=== PATIENT | female | born 2000 | race Caucasian/White ===

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

== ENCOUNTER 2019-01-05 21:14 | Emergency (ER) | payer SELFPAY ==
[~2019-01-05] VITALS: Ht 147.2 cm; Wt 40.9 kg
[~2019-01-05 21:14] MED LIST changes: +TRAM50TA2 PO
[2019-01-05 21:33] LABS: CLARITY,URINE CLEAR; COLOR,URINE YELLOW; GLUCOSE, URINE (UA) NEGATIVE (NEGATIVE); KETONES,URINE NEGATIVE (NEGATIVE); PROTEIN,URINE NEGATIVE (NEGATIVE)
[2019-01-05 21:34] LABS: BACTERIA,URINE MODERATE /HPF; BILIRUBIN,URINE NEGATIVE (NEGATIVE); LEUKOCYTE ESTERASE ,URINE 2+ (NEGATIVE); NITRITE,URINE NEGATIVE (NEGATIVE)
[2019-01-05] MEDS ORDERED: TRIM/SULFAMETH 160/800 (SEPTRA DS) TAB PO STA (23:09)
[2019-01-05] MEDS ORDERED: PHENAZOPYRIDINE 100 MG (PYRIDIUM) TABLET PO STA (23:09)
[2019-01-05] MEDS ORDERED: PHEN-639 PO (23:16)
[2019-01-05] MEDS ORDERED: SULF1TAB35 PO (23:16)
--- NOTE | 2019-01-05 23:16 | ED GU-Female ---
General Chief Complaint: - Urinary Stated Complaint: BURNING WHILE URINATION Nursing Triage Note: pt with hx of uti's, states she started having burning this morning with urination Source: patient, family History of Present Illness Date Seen by Provider: Jan 05, 2019 Time Seen by Provider: 22:48 Initial Comments 18-year-old female presenting with complaints of burning and pain with frequency of urination. This is been going on for a couple of days. She also has had spotting for 5-6 days. She has irregular periods for currently anyway. She has no fever or chills. She denies any abdominal pain. She denies any vaginal discharge. She states that this feels similar to her last UTI that she had approximately 6 months ago. Allergies and Home Medications Allergies Coded Allergies: No Known Drug Allergies (Unverified , 06/11/18) Home Medications Amoxicillin/Clavulanate K 150 Ml Btl, 1 TSP PO BID Prescribed by: EDWIN SANTORO on 05/18/14912 Dexamethasone 1 Mg/1 Ml Teodora, 1.5 TSP PO DAILY PRN for PAIN Mix 4MG/2.5 water Prescribed by: EDWIN SANTORO on 05/18/14912 Diclofenac Potassium 50 Mg Tablet, 50 MG PO Q8H PRN for ABDOMINAL PAIN Prescribed by: DAVID KAPOOR on 07/19/18 172 Hydrocodone Bit/Acetaminophen 15 Ml Solution, 1-1.5 TSP PO Q4H Prescribed by: EDWIN SANTORO on 05/18/14912 Ofloxacin 5 Ml Drops, 3 DROPS EACH EAR BID Prescribed by: EDIWN SANTORO on 05/18/14912 Phenazopyridine HCl 100 Mg Tablet, 100 MG PO TID Prescribed by: LOBO JOHN on 01/05/192315 Sulfamethoxazole/Trimethoprim 1 Each Tablet, 1 EACH PO BID Prescribed by: LOBO JOHN on 01/05/192315 Tetracaine Sucker Ea, 1 EA MT UD PRN Tetracain Suckers These suckers are custom made and require a prescription. Moisten the sucker first and then suck on it gently as far back in the mouth as possible for 2-3 days. You can repeadt it in about an hour. This will take the edge off but not completely numb the throat. Prescribed by: EDWIN SANTORO on 05/18/14912 Tramadol HCl 50 Mg Tablet, 50 MG PO Q6H PRN for PAIN Prescribed by: OLIVIA AQUINO on 07/20/18 1606 Patient Home Medication List Home Medication List Reviewed: Yes Review of Systems Review of Systems Constitutional: No chills, No fever EENTM: no symptoms reported Respiratory: no symptoms reported Cardiovascular: no symptoms reported Gastrointestinal: no symptoms reported Genitourinary: see HPI, burning, dysuria, frequency Musculoskeletal: no symptoms reported Skin: no symptoms reported Past Vkigiga-Itahsx-Afjfcu Hx Past Med/Social Hx: Reviewed Nursing Past Med/Soc Hx Patient Social History Alcohol Use: Denies Use Recreational Drug Use: No Type Used: Cigarettes 2nd Hand Smoke Exposure: No Recent Foreign Travel: No Contact w/Someone Who Travel: No Recent Infectious Disease Expo: No Recent Hopitalizations: No Ebola Symptoms: Denies Symptoms Listed Physical Abuse: No Sexual Abuse: No Mistreated: No Fear: No Seasonal Allergies Seasonal Allergies: No Past Medical History Surgeries: No (BMT) Respiratory: No Cardiac: No Neurological: No Genitourinary: Yes (frequent UTI's) Gastrointestinal: No Musculoskeletal: No Endocrine: No HEENT: No Cancer: No Psychosocial: No Integumentary: No Blood Disorders: No Physical Exam Vital Signs Vital Signs - First Documented 01/05/19 01/05/19 22:03 23:21 Temp 35.6 Pulse 99 Resp 18 B/P (MAP) 114/63 Pulse Ox 98 O2 Delivery Room Air Capillary Refill : Height, Weight, BMI Height: 4'9.50" Weight: 94lbs. 0oz. [id number]; 18.00 BMI Method:Stated General Appearance: WD/WN, no apparent distress Cardiovascular: normal peripheral pulses, regular rate, rhythm Respiratory: chest non-tender, lungs clear, normal breath sounds Gastrointestinal: normal bowel sounds, non tender, soft, no organomegaly, no pulsatile mass Neurologic/Psychiatric: alert, normal mood/affect, oriented x 3 Progress/Results/Core Measures Suspected Sepsis SIRS Temperature: Pulse: Respiratory Rate: Blood Pressure / Mean: Results/Orders Lab Results Laboratory Tests Test 01/05/19 21:20 Range/Units Urine Color YELLOW Urine Clarity CLEAR Urine pH 7.0 5-9 Urine Specific [place] <1.005 1.016-1.022 Urine Protein NEGATIVE NEGATIVE Urine Glucose (UA) NEGATIVE NEGATIVE Urine Ketones NEGATIVE NEGATIVE Urine Nitrite NEGATIVE NEGATIVE Urine Bilirubin NEGATIVE NEGATIVE Urine Urobilinogen 0.2 NORMAL MG/DL Urine Leukocyte Esterase 2+ H NEGATIVE Urine RBC (Auto) 2+ H NEGATIVE Urine RBC 2-5 H /HPF Urine WBC 10-25 H /HPF Urine Squamous Epithelial Cells 2-5 /HPF Urine Crystals NONE /LPF Urine Calcium Oxalate Crystals /LPF Urine Cystine Crystals /LPF Urine Amorphous Sediment /LPF Urine Bacteria MODERATE H /HPF Urine Casts NONE /LPF Urine Mucus NEGATIVE /LPF Urine Culture Indicated YES Urine Test NEGATIVE NEGATIVE My Orders Orders - LOBO JOHN MD Ua Culture If Indicated (01/05/19 21:18) Hcg,Qualitative Urine (01/05/19 21:18) Urine Culture (01/05/19 21:20) Sulfamethoxazole/Trimet Ds Tab (Bactrim (01/05/19 23:09) Phenazopyridine Tablet (Pyridium Tablet) (01/05/19 23:09) Vital Signs/I&O 01/05/19 01/05/19 22:03 23:21 Temp 35.6 35.6 Pulse 99 99 Resp 18 18 B/P (MAP) 114/63 Pulse Ox 98 O2 Delivery Room Air Room Air Capillary Refill : Progress Note : Progress Note Urinalysis shows leukocyte esterase and bacteria present signs of UTI. Will treat with Bactrim and peridium. Encouraged to drink more water and follow-up through the clinic for continued concerns. Departure Impression Primary Impression: Cystitis without hematuria Disposition: 01 HOME, SELF-CARE Condition: Stable Departure-Patient Inst. Decision time for Depature: 23:13 Referrals: NO,LOCAL PHYSICIAN (PCP) Primary Care Physician [facility] Patient Instructions: Urinary Tract Infection, Adult (DC) Add. Discharge Instructions: Stay well-hydrated and get plenty of fluids and help flush out the infection. Take the full course of antibiotics to help treat the infection. Follow-up through the clinic for continued concerns or if not improving. All discharge instructions reviewed with patient and/or family. Voiced understanding. Scripts Phenazopyridine HCl (Pyridium) 100 Mg Tablet 100 MG PO TID for 2 Days, #6 TAB 0 Refills Prov: LOBO JOHN MD 01/05/19 Sulfamethoxazole/Trimethoprim (Bactrim Ds Tablet) 1 Each Tablet 1 EACH PO BID for UTI for 7 Days, #14 TAB 0 Refills Prov: LOBO JOHN MD 01/05/19 LOBO JOHN MD Jan 05, 2019 23:16
== END 2019-01-05 23:21 | disposition home or self-care (01) ==
LOC: EDUNIT# 21:14 → ER FS 21:17
DX: N30.90 Cystitis, unspecified without hematuria (principal)
CPT/HCPCS: 81000; 84703; 87077; 87088; 99282

== ENCOUNTER 2019-02-19 19:50 | Emergency (ER) | payer OTHER ==
[~2019-02-19] VITALS: Ht 147 cm; Wt 43.3 kg
[~2019-02-19 19:50] MED LIST changes: +PHEN-639 PO
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
--- NOTE | 2019-02-19 20:41 | Diagnostic Imaging Report ---
INDICATION: Right hip pain. EXAMINATION: Two views of the right hip were obtained. FINDINGS: No fracture, dislocation or other acute abnormalities. IMPRESSION: Negative right hip. Dictated by: Dictated on workstation # [id number]
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
== END 2019-02-19 20:55 | disposition home or self-care (01) ==
LOC: EDUNIT# 19:50 → ER FS 19:52
DX: S06.0X0A Concussion without loss of consciousness, initial encounter (principal); S70.01XA Contusion of right hip, initial encounter; V49.40XA Driver injured in collision with unspecified motor vehicles in traffic accident, initial encounter
CPT/HCPCS: 73502

== ENCOUNTER 2019-05-15 18:42 | Emergency (ER) | payer SELFPAY ==
[~2019-05-15] VITALS: Ht 147 cm; Wt 44.9 kg
[~2019-05-15 18:42] MED LIST changes: +OFLO5DRO33 EACH EAR; -OFLO5DRO7 EACH EAR; -TRAM50TA2 PO; +TRM50T PO
[2019-05-15 19:16] LABS: BACTERIA,URINE LARGE /HPF; BILIRUBIN,URINE NEGATIVE (NEGATIVE); CLARITY,URINE CLOUDY; COLOR,URINE LIGHT RED; GLUCOSE, URINE (UA) NEGATIVE (NEGATIVE); KETONES,URINE NEGATIVE (NEGATIVE); LEUKOCYTE ESTERASE ,URINE NEGATIVE (NEGATIVE); NITRITE,URINE NEGATIVE (NEGATIVE); PH,URINE 5.5 (5-9); PROTEIN,URINE 1+ (NEGATIVE); RBC,URINE 50-100 /HPF
[2019-05-15] MEDS ORDERED: ONDA4TAB11 PO (20:19)
[2019-05-15] MEDS ORDERED: NAPR-1071 PO (20:19)
--- NOTE | 2019-05-15 20:19 | ED GU-Female ---
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 Source: patient History of Present Illness Date Seen by Provider: May 15, 2019 Time Seen by Provider: 20:15 Initial Comments 18-year-old female presenting with complaints of lower pelvic pain. She has had pain in this area with ovarian cysts and menstrual cramps in the past. She just had an ultrasound on that showed she had continued ovarian cysts. She is following with Dr. Nunez about this. She is currently on her menstrual period now. She had some darker colored blood today with her menses. She is only using one or two pads throughout the day. She denies any fever or chills. She has no diarrhea or change in her bowels. She has no burning or pain with urination. She has no urinary frequency. Allergies and Home Medications Allergies Coded Allergies: No Known Drug Allergies (Unverified , 06/11/18) Home Medications Naproxen 500 Mg Tablet, 500 MG PO BID PRN for pelvic pain Prescribed by: LOBO JOHN on 05/15/192018 Ondansetron 4 Mg Tab.rapdis, 4 MG PO Q6H PRN for NAUSEA/VOMITING Prescribed by: LOBO JOHN on 05/15/192018 Phenazopyridine HCl 100 Mg Tablet, 100 MG PO TID Prescribed by: LOBO JOHN on 01/05/192315 Sulfamethoxazole/Trimethoprim 1 Each Tablet, 1 EACH PO BID Prescribed by: LOBO JOHN on 01/05/192315 Patient Home Medication List Home Medication List Reviewed: Yes Review of Systems Review of Systems Constitutional: No chills, No fever, No malaise EENTM: no symptoms reported Respiratory: no symptoms reported Cardiovascular: no symptoms reported Gastrointestinal: No constipation, No diarrhea; nausea; No vomiting Genitourinary: denies burning, denies dysuria; pain (pelvic pain worse with menstrual cycle and consistent with her previous ovarian cyst) Musculoskeletal: no symptoms reported Skin: no symptoms reported Psychiatric/Neurological: Anxiety Past Dsvozbb-Cpdhzt-Xsigty Hx Past Med/Social Hx: Reviewed Nursing Past Med/Soc Hx Patient Social History Alcohol Use: Denies Use Recreational Drug Use: No Smoking Status: Current Everyday Smoker Type Used: Cigarettes 2nd Hand Smoke Exposure: No Recent Foreign Travel: No Contact w/Someone Who Travel: No Recent Infectious Disease Expo: No Recent Hopitalizations: No Physical Abuse: No Sexual Abuse: No Mistreated: No Fear: No Seasonal Allergies Seasonal Allergies: No Past Medical History Surgeries: No (BMT) Respiratory: No Cardiac: No Neurological: No Genitourinary: Yes (frequent UTI's) Gastrointestinal: No Musculoskeletal: No Endocrine: No HEENT: No Cancer: No Psychosocial: No Integumentary: No Blood Disorders: No Physical Exam Vital Signs Vital Signs - First Documented 05/15/19 05/15/19 19:00 20:35 Temp 36.5 Pulse 87 Resp 16 B/P (MAP) 143/85 Pulse Ox 100 O2 Delivery Room Air Capillary Refill : Height, Weight, BMI Height: 4'9.50" Weight: 94lbs. 0oz. 42.960218eu; 20.00 BMI Method:Stated General Appearance: WD/WN, no apparent distress HEENT: normal ENT inspection, pharynx normal Neck: non-tender, full range of motion, supple, normal inspection Cardiovascular: normal peripheral pulses, regular rate, rhythm Respiratory: chest non-tender, lungs clear, normal breath sounds Gastrointestinal: normal bowel sounds, soft, no pulsatile mass; No abnormal bowel sounds, No distended, No guarding, No rebound; tenderness (suprapubic and right and left lower quadrants); No mass Extremities: normal range of motion, non-tender, normal capillary refill Neurologic/Psychiatric: alert, normal mood/affect, oriented x 3 Skin: normal color, warm/dry Progress/Results/Core Measures Suspected Sepsis SIRS Temperature: Pulse: Respiratory Rate: Blood Pressure / Mean: Results/Orders Lab Results Laboratory Tests Test 05/15/19 18:45 Range/Units Urine Color LIGHT RED Urine Clarity CLOUDY Urine pH 5.5 5-9 Urine Specific [place] 1.020 1.016-1.022 Urine Protein 1+ H NEGATIVE Urine Glucose (UA) NEGATIVE NEGATIVE Urine Ketones NEGATIVE NEGATIVE Urine Nitrite NEGATIVE NEGATIVE Urine Bilirubin NEGATIVE NEGATIVE Urine Urobilinogen 0.2 < = 1.0 MG/DL Urine Leukocyte Esterase NEGATIVE NEGATIVE Urine RBC (Auto) 3+ H NEGATIVE Urine RBC 50-100 H /HPF Urine WBC NONE /HPF Urine Squamous Epithelial Cells 10-25 H /HPF Urine Crystals NONE /LPF Urine Bacteria LARGE H /HPF Urine Casts NONE /LPF Urine Mucus NEGATIVE /LPF Urine Culture Indicated YES My Orders Orders - LOBO JOHN MD Ua Culture If Indicated (05/15/19 18:57) Urine Bedside (05/15/19 18:57) Urine Culture (05/15/19 18:45) Ketorolac Injection (Toradol Injection) (05/15/19 20:20) Ondansetron Oral Dissolve Tab (Zofran (05/15/19 20:20) Vital Signs/I&O 05/15/19 05/15/19 19:00 20:35 Temp 36.5 Pulse 87 91 Resp 16 17 B/P (MAP) 143/85 Pulse Ox 100 O2 Delivery Room Air Room Air Capillary Refill : Progress Note : Progress Note Reassured patient that the urine did not show any definite problems. She did have some blood as well as bacteria but she denies UTI symptoms. We will give Toradol and naproxen to help treat for ovarian cysts. Encouraged to check back with Dr. Nunez about her pain. Departure Impression Primary Impression: Pelvic pain in female Additional Impression: Ovarian cyst Qualified Codes: N83.209 - Unspecified ovarian cyst, unspecified side Disposition: HOME, SELF-CARE Condition: Stable Departure-Patient Inst. Decision time for Depature: 20:16 Referrals: NO,LOCAL PHYSICIAN (PCP) Primary Care Physician ROSITA NUNEZ DO Patient Instructions: Ovarian Cyst (DC), Menstrual Cramps (DC) Add. Discharge Instructions: Take the medicine for pain and inflammation. Follow up with Dr. Nunez about the ovarian cysts and painful period bleeding. All discharge instructions reviewed with patient and/or family. Voiced understanding. Scripts Ondansetron (Ondansetron Odt) 4 Mg Tab.rapdis 4 MG PO Q6H PRN for NAUSEA/VOMITING for 2 Days, #8 TAB 0 Refills Prov: LOBO JOHN MD 05/15/19 Naproxen (Naprosyn) 500 Mg Tablet 500 MG PO BID PRN for pelvic pain for 15 Days, #30 TAB 0 Refills Prov: LOBO JOHN MD 05/15/19 Work/School Note: Work Release Form Date Seen in the Emergency Department: May 15, 2019 Return to Work: May 16, 2019 Restrictions: No Restrictions LOBO JOHN MD May 15, 2019 20:19
[2019-05-15] MEDS ORDERED: KETOROLAC 60 MG/2 ML VIAL IM STA (20:20)
[2019-05-15] MEDS ORDERED: ONDANSETRON 4 MG (ZOFRAN) ORAL DISSOLVE TAB PO STA (20:20)
== END 2019-05-15 20:37 | disposition home or self-care (01) ==
LOC: EDUNIT# 18:42 → ER FS 18:44
DX: N83.209 Unspecified ovarian cyst, unspecified side (principal); F17.210 Nicotine dependence, cigarettes, uncomplicated
CPT/HCPCS: 81000; 84703; 87088

== ENCOUNTER 2019-05-19 18:28 | Emergency (ER) | payer SELFPAY ==
[~2019-05-19] VITALS: Ht 147 cm; Wt 45.0 kg
[~2019-05-19 18:28] MED LIST changes: +NAPR-1071 PO; +ONDA4TAB11 PO
[2019-05-19] MEDS ORDERED: LIDOCAINE 1% INJ 20 ML 20 ML VIAL INJ STA (18:41)
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
== END 2019-05-19 19:28 | disposition home or self-care (01) ==
LOC: EDUNIT# 18:28 → ER FS 18:30
DX: S01.111A Laceration without foreign body of right eyelid and periocular area, initial encounter (principal); S00.81XA Abrasion of other part of head, initial encounter; R40.2142 Coma scale, eyes open, spontaneous, at arrival to emergency department; R40.2252 Coma scale, best verbal response, oriented, at arrival to emergency department; R40.2362 Coma scale, best motor response, obeys commands, at arrival to emergency department; W03.XXXA Other fall on same level due to collision with another person, initial encounter; W22.8XXA Striking against or struck by other objects, initial encounter
CPT/HCPCS: 99282

== ENCOUNTER 2019-05-26 17:14 | Emergency (ER) | payer SELFPAY ==
[~2019-05-26] VITALS: Ht 147.3 cm; Wt 45.3 kg
[2019-05-26 17:30] VITALS: BP 107/70
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
== END 2019-05-26 17:30 | disposition home or self-care (01) ==
LOC: EDUNIT# 17:14 → ER FS 17:15
DX: S01.111D Laceration without foreign body of right eyelid and periocular area, subsequent encounter (principal); X58.XXXD Exposure to other specified factors, subsequent encounter

== ENCOUNTER 2019-09-06 19:00 | Emergency (ER) | payer SELFPAY ==
[~2019-09-06] VITALS: Ht 147 cm; Wt 42.5 kg
[2019-09-06 19:21] LABS: BILIRUBIN,URINE NEGATIVE (NEGATIVE); CLARITY,URINE CLEAR; COLOR,URINE PALE YELLOW; GLUCOSE, URINE (UA) NEGATIVE (NEGATIVE); KETONES,URINE NEGATIVE (NEGATIVE); LEUKOCYTE ESTERASE ,URINE NEGATIVE (NEGATIVE); NITRITE,URINE NEGATIVE (NEGATIVE); PROTEIN,URINE NEGATIVE (NEGATIVE)
[2019-09-06 19:22] LABS: BACTERIA,URINE TRACE /HPF; WBC,URINE 0-2 /HPF
[2019-09-06] MEDS ORDERED: KETOROLAC 30 MG/ML VIAL IVP STA (19:43)
[2019-09-06] MEDS ORDERED: NAPR-1071 PO (20:24)
--- NOTE | 2019-09-06 20:24 | ED GU-Female ---
General Chief Complaint: Abdominal/GI Problems Stated Complaint: LOWER ABD/BACK PAIN Nursing Triage Note: Patient states low abdominal pain on both sides that radiates into her back x 2 days. Patient states previous hx of multiple UTI's. She states her last period was 06/30/19. States she does not believe she is and that she has a hx. of abnormal menses but not hx. of gynecological concerns. Nursing Sepsis Screen: No Definite Risk Source: patient History of Present Illness Date Seen by Provider: Sep 06, 2019 Time Seen by Provider: 20:06 Initial Comments 19-year-old female presenting with pelvic pain. She states that this is been going on for at least 2 days. She has had similar pain in the past when she misses her period and she has not had a menstrual cycle since June. She had tried taking Midol for the pain but it was not helping today. She denies any pain with urination. She does have some vaginal discharge but denies any new sexual partners or concern for infection. She states she has had similar symptoms in the past due to ovarian cyst especially when she is late on her period Allergies and Home Medications Allergies Coded Allergies: No Known Drug Allergies (Unverified , 06/11/18) Home Medications Naproxen 500 Mg Tablet, 500 MG PO BID PRN for pelvic pain Prescribed by: LOBO JOHN on 09/06/192023 Ondansetron 4 Mg Tab.rapdis, 4 MG PO Q6H PRN for NAUSEA/VOMITING Prescribed by: LOBO JOHN on 05/15/192018 Phenazopyridine HCl 100 Mg Tablet, 100 MG PO TID Prescribed by: LOBO JOHN on 01/05/192315 Sulfamethoxazole/Trimethoprim 1 Each Tablet, 1 EACH PO BID Prescribed by: LOBO JOHN on 01/05/192315 Patient Home Medication List Home Medication List Reviewed: Yes Review of Systems Review of Systems Constitutional: No chills, No fever EENTM: no symptoms reported Respiratory: no symptoms reported Cardiovascular: no symptoms reported Gastrointestinal: no symptoms reported Genitourinary: see HPI Musculoskeletal: back pain (low back pain) Skin: no symptoms reported Psychiatric/Neurological: No Symptoms Reported Past Dajtgjq-Rsoqev-Qpngcx Hx Past Med/Social Hx: Reviewed Nursing Past Med/Soc Hx Patient Social History Alcohol Use: Denies Use Recreational Drug Use: No Type Used: Cigarettes 2nd Hand Smoke Exposure: No Recent Foreign Travel: No Contact w/Someone Who Travel: No Recent Infectious Disease Expo: No Recent Hopitalizations: No Seasonal Allergies Seasonal Allergies: No Past Medical History Surgeries: No (BMT) Respiratory: No Cardiac: No Neurological: No : No Last Menstrual Period: Jun 30, 2019 Genitourinary: Yes (frequent UTI's) Gastrointestinal: No Musculoskeletal: No Endocrine: No HEENT: No Cancer: No Psychosocial: No Integumentary: No Blood Disorders: No Physical Exam Vital Signs Vital Signs - First Documented 09/06/19 19:15 Temp 36.6 Pulse 93 Resp 14 B/P (MAP) 116/74 (88) Pulse Ox 98 O2 Delivery Room Air Capillary Refill : Less Than 3 Seconds Height, Weight, BMI Height: 4'9.50" Weight: 94lbs. 0oz. 42.338243yw; 19.00 BMI Method:Actual General Appearance: WD/WN, no apparent distress HEENT: PERRL/EOMI, pharynx normal Cardiovascular: normal peripheral pulses, regular rate, rhythm Respiratory: chest non-tender, lungs clear, normal breath sounds Gastrointestinal: normal bowel sounds, soft, no pulsatile mass; No guarding, No rebound; tenderness (suprapubic tenderness) Rectal: deferred Back: normal inspection, no vertebral tenderness Extremities: normal range of motion, non-tender, normal inspection, normal capillary refill Neurologic/Psychiatric: customer counter associate II-XII nml as tested, no motor/sensory deficits, alert, normal mood/affect, oriented x 3 Skin: normal color, warm/dry; No rash Procedures/Interventions Suture Size: 5-0 Progress/Results/Core Measures Suspected Sepsis Recent Fever Within 48 Hours: No Infection Criteria Present: None New/Unexplained Altered Menta: No Sepsis Screen: No Definite Risk SIRS Temperature: Pulse: 93 Respiratory Rate: 14 Blood Pressure 116 /74 Mean: 88 Results/Orders Lab Results Laboratory Tests Test 09/06/19 19:05 Range/Units Urine Color PALE YELLOW Urine Clarity CLEAR Urine pH 7.0 5-9 Urine Specific [place] <=1.005 1.016-1.022 Urine Protein NEGATIVE NEGATIVE Urine Glucose (UA) NEGATIVE NEGATIVE Urine Ketones NEGATIVE NEGATIVE Urine Nitrite NEGATIVE NEGATIVE Urine Bilirubin NEGATIVE NEGATIVE Urine Urobilinogen 0.2 < = 1.0 MG/DL Urine Leukocyte Esterase NEGATIVE NEGATIVE Urine RBC (Auto) NEGATIVE NEGATIVE Urine RBC NONE /HPF Urine WBC 0-2 /HPF Urine Squamous Epithelial Cells 2-5 /HPF Urine Crystals NONE /LPF Urine Bacteria TRACE /HPF Urine Casts NONE /LPF Urine Mucus NEGATIVE /LPF Urine Culture Indicated NO My Orders Orders - LOBO JOHN MD Ua Culture If Indicated (09/06/19 19:02) Urine Bedside (09/06/19 19:13) Ketorolac Injection (Toradol Injection) (09/06/19 19:43) Ed Iv/Invasive Line Start (09/06/19 19:43) Rx-Hydrocodone/Apap 5-325 Mg (Rx-Vicodin (09/06/19 20:30) Vital Signs/I&O 09/06/19 09/06/19 19:15 20:37 Temp 36.6 Pulse 93 79 Resp 14 15 B/P (MAP) 116/74 (88) 119/72 Pulse Ox 98 99 O2 Delivery Room Air Room Air Capillary Refill : Less Than 3 Seconds Blood Pressure Mean: 88 Progress Note #1: Progress Note Urinalysis does not show any acute infection. She has a negative bedside . Given 30 mg IV Toradol for her pain Progress Note #2: Progress Note Patient reports pain improved after the Toradol treatment. Counseled on negative urine results. Will have her take naproxen and Midol for her pain and send with a few hydrocodone if needed for severe pain. Off work tomorrow and check with Dr. Nunez for continued concerns. If symptoms worsen she may need an ultrasound to evaluate for ovarian cysts as well. Departure Impression Primary Impression: Pelvic pain in female Disposition: 01 HOME, SELF-CARE Condition: Stable Departure-Patient Inst. Decision time for Depature: 20:23 Referrals: ROSITA NUNEZ DO (PCP) Primary Care Physician NO,LOCAL PHYSICIAN (Family) Primary Care Physician Patient Instructions: Acute Pelvic Pain (DC), Ovarian Cyst (DC) Add. Discharge Instructions: Use the Midol and Naproxen for pain. For severe pain you could take Hydrocodone. Check with Dr. Nunez in clinic for continued problems/concerns All discharge instructions reviewed with patient and/or family. Voiced understanding. Scripts Naproxen (Naprosyn) 500 Mg Tablet 500 MG PO BID PRN for pelvic pain for 15 Days, #30 TAB 0 Refills Prov: LOBO JOHN MD 09/06/19 Work/School Note: Work Release Form Date Seen in the Emergency Department: Sep 06, 2019 Return to Work: Sep 08, 2019 Restrictions: No Restrictions LOBO JOHN MD Sep 06, 2019 20:24
[2019-09-06] MEDS ORDERED: RX-HYDROCODONE/APAP 5/325 MG #4 TAB PK PO PRN (20:30)
[2019-09-06 20:37] VITALS: BP 119/72
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
== END 2019-09-06 20:37 | disposition home or self-care (01) ==
LOC: EDUNIT# 19:00 → ER FS 19:01
DX: R10.2 Pelvic and perineal pain (principal)
CPT/HCPCS: 81000; 84703

== ENCOUNTER 2019-10-27 06:18 | Emergency (ER) | payer SELFPAY ==
[~2019-10-27] VITALS: Ht 147.3 cm; Wt 40.8 kg
[2019-10-27 06:25] VITALS: BP 108/74
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
--- NOTE | 2019-10-27 06:46 | ED EENT ---
History of Present Illness General Chief Complaint: Dental Problems/Pain Stated Complaint: DENTAL PAIN Nursing Triage Note: PT AMBULATE TO ROOM FS02 WITH C/O GUM PAIN X2 WEEKS. PT STATES SHE HAS NOT SEEN A DENTIST FOR THIS C/O. 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 PT REPORTS USING ORAL JEL FOR THE PAIN. PT DENIES TAKING ANY TYLENOL OR IBUPROFEN FOR THE PAIN. PT STATES SHE IS WANTING ABX AND PAIN MEDICATION UNTIL SHE CAN GET INTO A DENTIST. Source: patient Exam Limitations: no limitations History of Present Illness Date Seen by Provider: Oct 27, 2019 Time Seen by Provider: 06:43 Initial Comments Patient is a 19-year-old female with history of chronic dental caries and poor dental hygiene and presents with her inflamed gums for the past several weeks. Patient has not seen a dentist. No dysphonia, dysphagia trismus or drooling. Timing/Duration: gradual, other (months) Severity: mild Location: mouth Prearrival Treatment: no prearrival treatment Allergies and Home Medications Allergies Coded Allergies: No Known Drug Allergies (Unverified , 06/11/18) Home Medications Naproxen 500 Mg Tablet, 500 MG PO BID PRN for pelvic pain Prescribed by: LOBO JOHN on 09/06/192023 Ondansetron 4 Mg Tab.rapdis, 4 MG PO Q6H PRN for NAUSEA/VOMITING Prescribed by: LOBO JOHN on 05/15/192018 Phenazopyridine HCl 100 Mg Tablet, 100 MG PO TID Prescribed by: LOBO JOHN on 01/05/192315 Sulfamethoxazole/Trimethoprim 1 Each Tablet, 1 EACH PO BID Prescribed by: LOBO JOHN on 01/05/192315 Patient Home Medication List Home Medication List Reviewed: Yes Review of Systems Review of Systems Constitutional: see HPI Eyes: See HPI Ears: See HPI All Other Systems Reviewed Negative Unless Noted: Yes Past Tmgejtd-Tmalxf-Nwksef Hx Patient Social History Alcohol Use: Denies Use Recreational Drug Use: No Smoking Status: Current Everyday Smoker Type Used: Cigarettes 2nd Hand Smoke Exposure: No Recent Foreign Travel: No Contact w/Someone Who Travel: No Recent Infectious Disease Expo: No Recent Hopitalizations: No Physical Abuse: No Sexual Abuse: No Mistreated: No Fear: No Seasonal Allergies Seasonal Allergies: No Past Medical History Surgeries: No (BMT) Respiratory: No Cardiac: No Neurological: No Genitourinary: Yes (frequent UTI's) Gastrointestinal: No Musculoskeletal: No Endocrine: No HEENT: No Cancer: No Psychosocial: No Integumentary: No Blood Disorders: No Physical Exam Vital Signs Vital Signs - First Documented 10/27/19 06:25 Temp 36.7 Pulse 93 Resp 17 B/P (MAP) 108/74 (85) O2 Delivery Room Air Height, Weight, BMI Height: 4'9.50" Weight: 94lbs. 0oz. 42.819879gg; 18.00 BMI Method:Actual General Appearance: WD/WN, no apparent distress Nose: normal inspection Mouth/Throat: other (extensive periodontal disease and widespread caries) Neck: full range of motion Procedures/Interventions Suture Size: 5-0 Progress/Results/Core Measures Results/Orders Vital Signs/I&O 10/27/19 06:25 Temp 36.7 Pulse 93 Resp 17 B/P (MAP) 108/74 (85) O2 Delivery Room Air Blood Pressure Mean: 85 Departure Communication (Admissions) Patient instructed to perform regular depression, flossing and use of mouthwash after eating. She is instructed to follow up with dentist of choice as soon as possible. Impression Primary Impression: Gingivitis Disposition: 01 HOME, SELF-CARE Condition: Stable Departure-Patient Inst. Add. Discharge Instructions: [place] your teeth for 2 minutes three times dailu, floss twice daily and use mouth wash after brushing. Follow up with dentist of choice [facility]. All discharge instructions reviewed with patient and/or family. Voiced understanding. OLIVIA AQUINO DO Oct 27, 2019 06:46
== END 2019-10-27 06:49 | disposition home or self-care (01) ==
LOC: EDUNIT# 06:18 → ER FS 06:20
DX: K05.10 Chronic gingivitis, plaque induced (principal); F17.210 Nicotine dependence, cigarettes, uncomplicated
CPT/HCPCS: 99282

== ENCOUNTER 2020-10-06 21:25 | Emergency (ER) | payer SELFPAY ==
[~2020-10-06 21:25] MED LIST changes: -SULF1TAB35 PO; +SULF1TAB38 PO
--- NOTE | 2020-10-06 21:35 | ED Abdominal Pain ---
General Stated Complaint: LOWER ABDOMINAL PAIN History of Present Illness Date Seen by Provider: Oct 06, 2020 Time Seen by Provider: 21:35 Initial Comments 20-year-old female presents with 2 weeks of lower abdominal discomfort, cramping intermittently. Has history of similar symptoms in the past with irregular periods for years. Her last menstrual period was a couple months ago, had some spotting last month. She is not on control and has been taking "Tylenol No. 2" that she got from her doctor 1 year ago with some relief. Denies vaginal bleeding or vaginal discharge currently. Sexually active with 1 partner and states she is not concerned about because "he has been fixed". Has an appointment w Dr Nunez on next week. No fever, chills, nausea, vomiting, constipation or diarrhea. Allergies and Home Medications Allergies Coded Allergies: No Known Drug Allergies (Unverified , 06/11/18) Home Medications Naproxen 500 Mg Tablet, 500 MG PO BID PRN for pelvic pain Prescribed by: LOBO JOHN on 09/06/192023 Ondansetron 4 Mg Tab.rapdis, 4 MG PO Q6H PRN for NAUSEA/VOMITING Prescribed by: LOBO JOHN on 05/15/192018 Phenazopyridine HCl 100 Mg Tablet, 100 MG PO TID Prescribed by: LOBO JOHN on 01/05/192315 Sulfamethoxazole/Trimethoprim 1 Each Tablet, 1 EACH PO BID Prescribed by: LOBO JOHN on 01/05/192315 Patient Home Medication List Home Medication List Reviewed: Yes Review of Systems Review of Systems Constitutional: No fever, No malaise, No weakness Respiratory: No Symptoms Reported Cardiovascular: No Symptoms Reported Gastrointestinal: See HPI, Abdominal Pain; Denies Constipated, Denies Diarrhea, Denies Nausea, Denies Poor Appetite, Denies Vomiting Genitourinary: Denies Burning, Denies Discharge, Denies Drainage, Denies Frequency, Denies Flank Pain, Denies Hematuria, Denies Pain Musculoskeletal: No back pain, No joint pain Skin: No change in color, No rash Past Hsmgtdx-Wsdlvg-Ujgici Hx Patient Social History Tobacco Use?: Yes Seasonal Allergies Seasonal Allergies: No Past Medical History Surgeries: No (BMT) Respiratory: No Cardiac: No Neurological: No Genitourinary: Yes (frequent UTI's) Gastrointestinal: No Musculoskeletal: No Endocrine: No HEENT: No Cancer: No Psychosocial: No Integumentary: No Blood Disorders: No Physical Exam Vital Signs Capillary Refill : Height/Weight/BMI Height: 4'9.50" Weight: 94lbs. 0oz. 42.331828ub; 18.00 BMI Method:Actual General Appearance: WD/WN, no apparent distress Respiratory: chest non-tender, lungs clear, normal breath sounds, no respiratory distress, no accessory muscle use Cardiovascular: regular rate, rhythm, no edema, no JVD Gastrointestinal: normal bowel sounds, soft, no organomegaly, no pulsatile mass, tenderness (suprapubic and b/l LQ's without r/r/g. ) Back: normal inspection, no CVA tenderness Neurologic/Psychiatric: alert, normal mood/affect Skin: normal color, warm/dry Procedures/Interventions Suture Size: 5-0 Progress/Results/Core Measures Results/Orders My Orders Orders - SELWYN HOWARD DO Urinalysis (10/06/20 21:34) Hcg,Qualitative Urine (10/06/20 21:34) Departure Impression Primary Impression: Pelvic pain Disposition: 01 HOME, SELF-CARE Condition: Stable Departure-Patient Inst. Referrals: ROSITA NUNEZ DO (PCP/Family) Primary Care Physician Add. Discharge Instructions: Keep your appointment scheduled w Dr Nunez scheduled on 10/11/2020 Scripts Acetaminophen with Codeine (Acetaminophen-Cod #3 Tablet) 1 Each Tablet 1 EACH PO q6 PRN for PAIN-MODERATE (5-7) for 7 Days, #12 TAB Prov: SELWYN HOWARD DO 10/06/20 Ibuprofen (Ibuprofen) 800 Mg Tablet 800 MG PO Q8H PRN for PAIN, #30 TAB 0 Refills Prov: MARSTINESELWYN DO 10/06/20 SELWYN HOWARD DO Oct 06, 2020 21:35
[2020-10-06] MEDS ORDERED: ACET1TAB43 PO (21:47)
[2020-10-06] MEDS ORDERED: IBUP-1780 PO (21:47)
[2020-10-06 22:09] LABS: BILIRUBIN,URINE NEGATIVE (NEGATIVE); CLARITY,URINE CLEAR; COLOR,URINE YELLOW; GLUCOSE, URINE (UA) NEGATIVE (NEGATIVE); KETONES,URINE NEGATIVE (NEGATIVE); LEUKOCYTE ESTERASE ,URINE NEGATIVE (NEGATIVE); NITRITE,URINE NEGATIVE (NEGATIVE); PH,URINE 6.5 (5-9); PROTEIN,URINE NEGATIVE (NEGATIVE)
[2020-10-06 22:10] LABS: BACTERIA,URINE TRACE /HPF; SQUAMOUS EPITHELIAL CELL,UR 0-2 /HPF; WBC,URINE 0-2 /HPF
[2020-10-06] MEDS ORDERED: KETOROLAC 60 MG/2 ML VIAL IM ONE (22:15)
[2020-10-06 22:18] VITALS: BP 119/78
== END 2020-10-06 22:19 | disposition home or self-care (01) ==
LOC: EDUNIT# 21:25 → ER FS 21:29
DX: R10.2 Pelvic and perineal pain (principal); Z87.440 Personal history of urinary (tract) infections
CPT/HCPCS: 81000; 84703; 99284

== ENCOUNTER 2022-04-22 12:12 | Emergency (ER) | payer SELFPAY ==
[~2022-04-22] VITALS: Ht 144.8 cm; Wt 44.3 kg
[~2022-04-22 12:12] MED LIST changes: +ACET-11 PO; +IBUP-1780 PO
[2022-04-22 12:18] VITALS: BP 115/70
--- NOTE | 2022-04-22 12:28 | ED GI ---
General Chief Complaint: Abdominal/GI Problems Stated Complaint: ABD PAIN; VOMITING; RT LEG PAIN Source of Information: Patient Exam Limitations: No Limitations History of Present Illness Date Seen by Provider: Apr 22, 2022 Time Seen by Provider: 12:14 Initial Comments 21-year-old female presents to the emergency department today for bilateral pelvic pain. Symptoms started last night and have been constant. Described as dull cramping bilateral lower pelvic region without radiation. No aggravating or alleviating factors. She has her normal vaginal discharge without any changes. No new sexual partners. Denies because "the lauro I am sleeping with is fixed." She denies any changes in urine. No changes in bowel movements. She has had pain similar to several previous time and has been seen in the emergency department. She states she has irregular menstrual cycles and when she is late for her menstrual cycle she typically gets pain like this. Her last menstrual cycle was the 2424. She is not on control. She had some vomiting secondary to pain last night. No fevers or chills. No changes in her appetite. She has not had any abdominal surgeries Allergies and Home Medications Allergies Coded Allergies: No Known Drug Allergies (Unverified , 06/11/18) Patient Home Medication List Home Medication List Reviewed: Yes Acetaminophen with Codeine (Acetaminophen-Cod #3 Tablet) 1 Each Tablet, 1 EACH PO q6 PRN for PAIN-MODERATE (5-7) Prescribed by: SELWYN HOWARD on 10/06/202147 Ibuprofen (Ibuprofen) 800 Mg Tablet, 800 MG PO Q8H PRN for PAIN Prescribed by: SELWYN MANUELSTDEB on 10/06/202146 Naproxen (Naprosyn) 500 Mg Tablet, 500 MG PO BID PRN for pelvic pain Prescribed by: LOBO JOHN on 09/06/192023 Ondansetron (Ondansetron Odt) 4 Mg Tab.rapdis, 4 MG PO Q6H PRN for NAUSEA/VOMITING Prescribed by: LOBO JOHN on 05/15/192018 Phenazopyridine HCl (Pyridium) 100 Mg Tablet, 100 MG PO TID Prescribed by: LOBO JOHN on 01/05/192315 Sulfamethoxazole/Trimethoprim (Bactrim Ds Tablet) 1 Each Tablet, 1 EACH PO BID Prescribed by: LOBO JOHN on 01/05/192315 Review of Systems Review of Systems Constitutional: no symptoms reported EENTM: No Symptoms Reported Respiratory: No Symptoms Reported Cardiovascular: No Symptoms Reported Gastrointestinal: Abdominal Pain Genitourinary: No Symptoms Reported Musculoskeletal: no symptoms reported Skin: no symptoms reported Psychiatric/Neurological: No Symptoms Reported Endocrine: No Symptoms Reported Hematologic/Lymphatic: No Symptoms Reported Past Ldrvyeo-Wxpywj-Gihpth Hx Patient Social History Tobacco Use?: No Use of E-Cig and/or Vaping dev: No Substance use?: No Alcohol Use?: No Seasonal Allergies Seasonal Allergies: No Past Medical History Surgeries: No (BMT) Respiratory: No Cardiac: No Neurological: No Genitourinary: Yes (frequent UTI's) Gastrointestinal: No Musculoskeletal: No Endocrine: No HEENT: No Cancer: No Psychosocial: No Integumentary: No Blood Disorders: No Family Medical History Reviewed Nursing Family Hx No Pertinent Family Hx Physical Exam Vital Signs Vital Signs - First Documented 04/22/22 12:18 Temp 36.8 Pulse 110 Resp 18 B/P (MAP) 115/70 (85) Pulse Ox 100 O2 Delivery Room Air Capillary Refill : Height/Weight/BMI Height: 4'9.50" Weight: 94lbs. 0oz. 42.301409qi; 18.00 BMI Method:Actual General Appearance: WD/WN, no apparent distress HEENT: normal ENT inspection, pharynx normal Neck: non-tender, supple, normal inspection Respiratory: chest non-tender, lungs clear, normal breath sounds, no respiratory distress, no accessory muscle use Cardiovascular: regular rate, rhythm, no murmur Gastrointestinal: normal bowel sounds, soft, no organomegaly, tenderness (Very mild tenderness palpation of bilateral suprapubic region. No rebound or guarding. No mass organomegaly. No skin changes. Nonsurgical abdominal exam.) Extremities: normal range of motion, non-tender, normal inspection, no pedal edema, no calf tenderness, normal capillary refill Back: normal inspection, no CVA tenderness, no vertebral tenderness Neurologic/Psychiatric: alert, normal mood/affect, oriented x 3 Skin: normal color, warm/dry Lymphatic: no adenopathy Procedures/Interventions Suture Size: 5-0 Progress/Results/Core Measures Results/Orders Lab Results Laboratory Tests Test 04/22/22 12:18 Range/Units Urine Color YELLOW Urine Clarity SL CLOUDY Urine pH 5.5 5-9 Urine Specific [place] 1.025 H 1.016-1.022 Urine Protein NEGATIVE NEGATIVE Urine Glucose (UA) NEGATIVE NEGATIVE Urine Ketones NEGATIVE NEGATIVE Urine Nitrite NEGATIVE NEGATIVE Urine Bilirubin NEGATIVE NEGATIVE Urine Urobilinogen 0.2 < = 1.0 MG/DL Urine Leukocyte Esterase NEGATIVE NEGATIVE Urine RBC (Auto) NEGATIVE NEGATIVE Urine RBC NONE /HPF Urine WBC RARE /HPF Urine Squamous Epithelial Cells 10-25 H /HPF Urine Crystals NONE /LPF Urine Bacteria FEW H /HPF Urine Casts NONE /LPF Urine Mucus SMALL H /LPF Urine Culture Indicated NO My Orders Orders - KRYSTYNA OBRIEN DO Ua Culture If Indicated (04/22/22 12:32) Urine Bedside (04/22/22 12:32) Ketorolac Injection (Toradol Injection) (04/22/22 12:45) Medications Given in ED Current Medications Medications Dose Ordered Sig/Sara Route Start Time Stop Time Status Last Admin Dose Admin Ketorolac Tromethamine 15 mg ONCE ONCE IM 04/22/22 12:45 04/22/22 12:46 DC 04/22/22 12:43 15 MG Vital Signs/I&O 04/22/22 12:18 Temp 36.8 Pulse 110 Resp 18 B/P (MAP) 115/70 (85) Pulse Ox 100 O2 Delivery Room Air Departure Communication (Admissions) Patient is hemodynamically stable. This does appear to be a chronic pain for her. She has a benign abdominal exam, certainly nonsurgical. Her urine is negative for infection, blood. Her urine test at bedside is negative. She is feeling somewhat better after Toradol IM. She is discharged home with p.o. Toradol in otherwise stable condition. Impression Primary Impression: Pelvic pain Disposition: 01 HOME, SELF-CARE Condition: Stable Departure-Patient Inst. Referrals: NO,LOCAL PHYSICIAN (PCP/Family) Primary Care Physician Patient Instructions: Abdominal Pain, Adult ED Add. Discharge Instructions: You were seen in the emergency department today for pelvic pain. This seems to be more chronic in nature. It is unclear what this is related to however it continues to happen I do recommend that you follow-up with gynecology by calling to schedule an appointment. Unfortunately I think Dr. Nunez is retiring. I recommend you follow-up with Dr. RICHARDSON. Use the prescribed medication as needed for pain. Do not take any other anti-inflammatory medicines while taking this to prevent ulcers. You should also take this medicine with food. Return to the emergency department for any severe concerns. All discharge instructions reviewed with patient and/or family. Voiced understanding. Scripts Ketorolac Tromethamine (Ketorolac Tromethamine) 10 Mg Tablet 10 MG PO TID for Pain for 3 Days, #9 TAB Prov: KRYSTYNA OBRIEN DO 04/22/22 KRYSTYNA OBRIEN DO Apr 22, 2022 12:28
[2022-04-22 12:39] LABS: BILIRUBIN,URINE NEGATIVE (NEGATIVE); CLARITY,URINE SL CLOUDY; COLOR,URINE YELLOW; GLUCOSE, URINE (UA) NEGATIVE (NEGATIVE); KETONES,URINE NEGATIVE (NEGATIVE); LEUKOCYTE ESTERASE ,URINE NEGATIVE (NEGATIVE); NITRITE,URINE NEGATIVE (NEGATIVE); PH,URINE 5.5 (5-9); PROTEIN,URINE NEGATIVE (NEGATIVE)
[2022-04-22 12:44] LABS: BACTERIA,URINE FEW /HPF; WBC,URINE RARE /HPF
[2022-04-22] MEDS ORDERED: KETOROLAC 15 MG/ML VIAL IM ONE (12:45)
[2022-04-22] MEDS ORDERED: KETO10TA PO (13:05)
== END 2022-04-22 13:07 | disposition home or self-care (01) ==
LOC: EDUNIT# 12:12 → ER FS 12:15
DX: R10.2 Pelvic and perineal pain (principal); Z32.02 Encounter for pregnancy test, result negative; Z28.310 Unvaccinated for COVID-19
CPT/HCPCS: 81000; 84703; 99284

== ENCOUNTER → 2022-08-30 | Outpatient (CLI) | payer SELFPAY ==
[~2022-08-30] MED LIST changes: +KETO10TA PO
--- NOTE | 2022-08-30 14:13 | Diagnostic Imaging Report ---
INDICATION: Ankle pain. Rolled ankle. FINDINGS: There are no findings of cortical disruption of the distal tibia or the fibula or findings of abnormal widening of the ankle mortise. The talar dome has normal morphology. There is no identified fracture or malalignment of the visualized portion of the foot. IMPRESSION: No evidence of right ankle fracture or malalignment. Dictated by: Dictated on workstation # [id number]
== END ==
LOC: RAD FS 11:55
PROVIDERS: ATTEND Nurse Practitioner Family
DX: S99.912A Unspecified injury of left ankle, initial encounter (principal); X58.XXXA Exposure to other specified factors, initial encounter
CPT/HCPCS: 73610